=== PATIENT | male | born 1995 | race American Indian/Alaskan Native ===

== ENCOUNTER 2019-01-13 22:17 | Emergency (ER) | payer OTHER ==
[2019-01-13 23:37] LABS: Basophils % (Auto) 0.9 % (0.0-1.8); Eosinophils # (Auto) 0.5 K/mm3 (0.0-0.4); Eosinophils % (Auto) 9.5 % (0.0-4.3); Hematocrit 43.8 % (35.5-45.6); Hemoglobin 15.3 gm/dl (11.8-15.2); Lymphocytes # (Auto) 1.4 K/mm3 (1.2-5.4); Lymphocytes % (Auto) 28.1 % (13.4-35.0); Mean Corpuscular HGB Conc 35 % (32-34); Mean Corpuscular Hemoglobin 31 pg (28-32); Mean Corpuscular Volume 89 fl (84-94); Monocytes # (Auto) 0.4 K/mm3 (0.0-0.8); Monocytes % (Auto) 8.3 % (0.0-7.3); Red Blood Count 4.93 M/mm3 (3.65-5.03); Red Cell Distribution Width 14.5 % (13.2-15.2)
[2019-01-13 23:57] LABS: BUN/Creatinine Ratio 11; Blood Urea Nitrogen 13 mg/dL (9-20); Calcium 9.4 mg/dL (8.4-10.2); Hemolysis Index 8
[2019-01-14 00:11] LABS: Platelet Count 128 K/mm3 (140-440)
[2019-01-14] MEDS ORDERED: NITRO-BID 2% TP ONE (01:46)
--- NOTE | 2019-01-14 01:51 | Emergency Department Report ---
HPI - General Chief Complaint: Chest Pain Time Seen by Provider: 01/14/19 01:27 - [facility] HPI: Room 17 The patient is a 23-year-old male presenting with chief complaint chest pain. The patient states she's been on a crack cocaine binge for the past 5 days. The patient states for the past 3 weeks she's had left-sided chest pain associated with back numbness and shortness of breath. Patient denies nausea/vomiting or diaphoresis. The patient states he took someone else's carvedilol because he learned that it is a medication to lower blood pressure. Patient states his chest pain prompted him to come to the ED upon arrival to the ED he states his chest pain resolved. Patient currently denies chest pain Location: [See above] Duration: [See above] Quality: pain Severity: [See above] Modifying factors: [see above] Context: [see above] Mode of transportation: [not driving] ED Past Medical Hx - Past Medical History Hx Hypertension: Yes Hx Psychiatric Treatment: Yes (Depression) - Surgical History Past Surgical History?: No - Family History Family history: no significant - Social History Smoking Status: Current Every Day Smoker (1/7 per day) Substance Use Type: Alcohol (occasional), Cocaine ED Review of Systems ROS: Stated complaint: CHEST PAIN Other details as noted in HPI Constitutional: denies: diaphoresis Eyes: denies: eye pain ENT: denies: throat pain Respiratory: shortness of breath Cardiovascular: chest pain Endocrine: no symptoms reported Gastrointestinal: denies: nausea, vomiting Genitourinary: denies: dysuria Musculoskeletal: back pain Neurological: paresthesias. denies: headache Physical Exam - Physical Exam Vital Signs: Vital Signs 01/13/19 01/14/19 01/14/19 22:48 00:30 00:45 Temperature 98 F Pulse Rate 68 55 L Respiratory 20 20 Rate Blood Pressure 154/87 126/68 O2 Sat by Pulse 100 98 98 Oximetry 01/14/19 00:55 Temperature Pulse Rate Respiratory 18 Rate Blood Pressure O2 Sat by Pulse 97 Oximetry Physical Exam: GENERAL: The patient is well-developed well-nourished male lying on stretcher not appearing to be in acute distress. [] HEENT: Normocephalic. Atraumatic. Extraocular motions are intact. Patient has moist mucous membranes. NECK: Supple. Trachea midline CHEST/LUNGS: Clear to auscultation. There is no respiratory distress noted. HEART/CARDIOVASCULAR: Regular. There is no tachycardia. There is no gallop rub or murmur. ABDOMEN: Abdomen is soft, nontender. Patient has normal bowel sounds. There is no abdominal distention. SKIN: There is no rash. There is no edema. There is no diaphoresis. NEURO: The patient is awake, alert, and oriented. The patient is cooperative. The patient has normal speech MUSCULOSKELETAL: There is no evidence of acute injury. ED Course Vital Signs 01/13/19 01/14/19 01/14/19 22:48 00:30 00:45 Temperature 98 F Pulse Rate 68 55 L Respiratory 20 20 Rate Blood Pressure 154/87 126/68 O2 Sat by Pulse 100 98 98 Oximetry 01/14/19 00:55 Temperature Pulse Rate Respiratory 18 Rate Blood Pressure O2 Sat by Pulse 97 Oximetry ED Medical Decision Making - Lab Data Result diagrams: 01/13/19 23:01 01/13/19 23:01 Laboratory Tests 01/13/19 01/13/19 01/14/19 23:01 23:01 03:59 WBC 5.1 RBC 4.93 Hgb 15.3 H Hct 43.8 MCV 89 MCH 31 MCHC 35 H RDW 14.5 Plt Count 128 L Lymph % (Auto) 28.1 Cook % (Auto) 8.3 H Eos % (Auto) 9.5 H Baso % (Auto) 0.9 Lymph # 1.4 Cook # 0.4 Eos # 0.5 H Baso # 0.0 Seg Neutrophils % 53.2 Seg Neutrophils # 2.7 Sodium 139 Potassium 3.7 Chloride 101.9 Carbon Dioxide 25 Anion Gap 16 BUN 13 Creatinine 1.2 Estimated GFR > 60 BUN/Creatinine Ratio 11 Glucose 82 Calcium 9.4 Troponin T < 0.010 Urine Opiates Screen Presumptive negative Urine Methadone Screen Presumptive negative Ur Barbiturates Screen Presumptive negative Ur Phencyclidine Scrn Presumptive negative Ur Amphetamines Screen Presumptive negative U Benzodiazepines Scrn Presumptive negative Urine Cocaine Screen Presumptive positive U Marijuana (THC) Screen Presumptive positive Drugs of Abuse Note Disclamer 01/14/19 05:33 WBC RBC Hgb Hct MCV MCH MCHC RDW Plt Count Lymph % (Auto) Cook % (Auto) Eos % (Auto) Baso % (Auto) Lymph # Cook # Eos # Baso # Seg Neutrophils % Seg Neutrophils # Sodium Potassium Chloride Carbon Dioxide Anion Gap BUN Creatinine Estimated GFR BUN/Creatinine Ratio Glucose Calcium Troponin T < 0.010 Urine Opiates Screen Urine Methadone Screen Ur Barbiturates Screen Ur Phencyclidine Scrn Ur Amphetamines Screen U Benzodiazepines Scrn Urine Cocaine Screen U Marijuana (THC) Screen Drugs of Abuse Note - EKG Data -: EKG Interpreted by Me EKG shows normal: sinus rhythm Rate: normal - EKG Data When compared to previous EKG there are: previous EKG unavailable Interpretation: nonspecific ST-T wave luis (T-wave inversions in leads 2, 3, aVF. Slight ST depression in leads 23, aVF) - Radiology Data Radiology results: report reviewed (chest x-ray), image reviewed (chest x-ray) interpreted by me: Chest x-ray-no focal infiltrates, no pneumothorax Findings [facility] [address] [place] [address] XRay Report Signed Patient: LUDMILA NUNEZ MR#: [id number] : 07/1995 Acct:[id number] Age/Sex: 23 / M ADM Date: 01/13/19 Loc: ED Attending Dr: Ordering Physician: MINNA BEARD MD Date of Service: 01/14/19 Procedure(s): XR chest 1V ap Accession Number(s): [id number] cc: MINNA BEARD MD Fluoro Time In Minutes: FINAL REPORT PROCEDURE: XR CHEST 1V AP TECHNIQUE: Chest radiograph anteroposterior view. CPT 43725 HISTORY: chest pain COMPARISON: No prior studies are available for comparison. FINDINGS: Heart: Normal. Mediastinum/Vessels: Normal. Lungs/Pleural space: Normal. Bony thorax: No acute osseous abnormality. Life support devices: None. IMPRESSION: No acute cardiopulmonary abnormality. Transcribed By: CO Dictated By: JIMENEZ JACOBSEN MD Electronically Authenticated By: JIMENEZ JACOBSEN MD Signed Date/Time: 01/14/19304 DD/ 3 TD/TT: 01/14/19303 - Differential Diagnosis ACS, pericarditis, GERD Critical care attestation.: If time is entered above; I have spent that time in minutes in the direct care of this critically ill patient, excluding procedure time. ED Disposition Clinical Impression: Chest pain, Cocaine use Disposition: DC-09 OP ADMIT IP TO THIS HOSP Is pt being admited?: No Does the pt Need Aspirin: Yes Condition: Undetermined Instructions: Chest Pain (ED) Referrals: PRIMARY CARE,MD [Primary Care Provider] - 3-5 Days Time of Disposition: 06:14 (pt leaving AMA)
--- NOTE | 2019-01-14 03:05 | XRay Report ---
FINAL REPORT PROCEDURE: XR CHEST 1V AP TECHNIQUE: Chest radiograph anteroposterior view. CPT 78232 HISTORY: chest pain COMPARISON: No prior studies are available for comparison. FINDINGS: Heart: Normal. Mediastinum/Vessels: Normal. Lungs/Pleural space: Normal. Bony thorax: No acute osseous abnormality. Life support devices: None. IMPRESSION: No acute cardiopulmonary abnormality.
[2019-01-14 05:02] LABS: Amphetamine Screen,Urine PRESUMPTIVE NEGATIVE; Benzodiazepines Screen,Urine PRESUMPTIVE NEGATIVE; Methadone Screen,Urine PRESUMPTIVE NEGATIVE; Opiate Screen,Urine PRESUMPTIVE NEGATIVE
[2019-01-14 05:27] LABS: Cannabinoid Screen,Urine PRESUMPTIVE POSITIVE; Cocaine Screen,Urine PRESUMPTIVE POSITIVE
[2019-01-14 06:11] VITALS: BP 108/60
[2019-01-14] MEDS ORDERED: TYLENOL PO ONE (06:13)
== END 2019-01-14 06:15 | disposition admitted as inpatient to this hospital (09) ==
LOC: ED 22:17
DX: R07.89 Other chest pain (principal); R06.02 Shortness of breath; R20.0 Anesthesia of skin; F14.10 Cocaine abuse, uncomplicated; I10 Essential (primary) hypertension; F32.9 Major depressive disorder, single episode, unspecified; F17.200 Nicotine dependence, unspecified, uncomplicated; Z79.899 Other long term (current) drug therapy
CPT/HCPCS: 36415; 71045; 80048; 80307; 84484; 85025; 93005; 93010

== ENCOUNTER 2019-02-06 23:16 | Emergency (ER) | payer OTHER ==
[2019-02-06 23:35] VITALS: BP 138/80
[2019-02-07 00:04] LABS: Basophils % (Auto) 0.9 % (0.0-1.8); Hematocrit 42.9 % (35.5-45.6); Hemoglobin 14.4 gm/dl (11.8-15.2); Lymphocytes # (Auto) 1.2 K/mm3 (1.2-5.4); Lymphocytes % (Auto) 29.6 % (13.4-35.0); Mean Corpuscular HGB Conc 34 % (32-34); Mean Corpuscular Volume 90 fl (84-94); Monocytes # (Auto) 0.4 K/mm3 (0.0-0.8); Red Blood Count 4.79 M/mm3 (3.65-5.03); Red Cell Distribution Width 14.7 % (13.2-15.2)
[2019-02-07 00:07] LABS: Platelet Count 97 K/mm3 (140-440)
[2019-02-07 00:51] LABS: BUN/Creatinine Ratio 14; Blood Urea Nitrogen 14 mg/dL (9-20); Calcium 9.4 mg/dL (8.4-10.2); Hemolysis Index 25
--- NOTE | 2019-02-07 01:43 | Emergency Department Report ---
ED General Adult HPI - General Chief complaint: Chest Pain Stated complaint: DON'T FEEL RIGHT Time Seen by Provider: 02/07/19 01:41 Source: patient Mode of arrival: Ambulatory Limitations: No Limitations - History of Present Illness Initial comments: 23 y.o. male with history of cocaine abuse presents with complaint of chest pain. Patient has been using cocaine for the past 8 days. Patient denies SI or HI. Severity scale (0 -10): 9 - Related Data Allergies Allergy/AdvReac Type Severity Reaction Status Date / Time No Known Allergies Allergy Unverified 01/13/19 22:22 ED Review of Systems ROS: Stated complaint: DON'T FEEL RIGHT Other details as noted in HPI Constitutional: denies: chills, fever Eyes: denies: eye pain, eye discharge, vision change ENT: denies: ear pain, throat pain Respiratory: denies: cough, shortness of breath, wheezing Cardiovascular: chest pain Endocrine: no symptoms reported Gastrointestinal: denies: abdominal pain, nausea, diarrhea Genitourinary: denies: urgency, dysuria Musculoskeletal: denies: back pain, joint swelling, arthralgia Skin: denies: rash, lesions Neurological: denies: headache, weakness, paresthesias Psychiatric: denies: anxiety, depression Hematological/Lymphatic: denies: easy bleeding, easy bruising ED Past Medical Hx - Past Medical History Hx Hypertension: Yes Hx Psychiatric Treatment: Yes (Depression) - Social History Smoking Status: Current Every Day Smoker Substance Use Type: Alcohol, Marijuana ED Physical Exam - General Limitations: No Limitations General appearance: alert, in no apparent distress - Head Head exam: Present: atraumatic, normocephalic - Eye Eye exam: Present: normal appearance - ENT ENT exam: Present: mucous membranes moist - Neck Neck exam: Present: normal inspection - Respiratory Respiratory exam: Present: normal lung sounds bilaterally. Absent: respiratory distress - Cardiovascular Cardiovascular Exam: Present: regular rate, normal rhythm. Absent: systolic murmur, diastolic murmur, rubs, gallop - GI/Abdominal GI/Abdominal exam: Present: soft, normal bowel sounds - Rectal Rectal exam: Present: deferred - Extremities Exam Extremities exam: Present: normal inspection - Back Exam Back exam: Present: normal inspection - Neurological Exam Neurological exam: Present: alert, oriented X3 - Psychiatric Psychiatric exam: Present: normal affect, normal mood - Skin Skin exam: Present: warm, dry, intact, normal color. Absent: rash ED Course Vital Signs 02/06/19 23:34 Temperature 98.9 F Pulse Rate 80 Respiratory 16 Rate Blood Pressure 138/80 O2 Sat by Pulse 96 Oximetry ED Medical Decision Making - Lab Data Result diagrams: 02/06/19 23:48 02/06/19 23:48 - EKG Data -: EKG Interpreted by Me EKG shows normal: sinus rhythm Rate: normal - EKG Data When compared to previous EKG there are: no significant change Interpretation: no acute changes - Differential Diagnosis STEMI; NSTEMI; Electrolyte abnormality; Anemia: pneumonia Critical care attestation.: If time is entered above; I have spent that time in minutes in the direct care of this critically ill patient, excluding procedure time. ED Disposition Condition: Stable Referrals: [facility] [Other] - 3-5 Days
== END 2019-02-07 02:00 | disposition left against medical advice (07) ==
LOC: ED 23:16
DX: F14.10 Cocaine abuse, uncomplicated (principal); Z79.899 Other long term (current) drug therapy; Z53.21 Procedure and treatment not carried out due to patient leaving prior to being seen by health care provider
CPT/HCPCS: 36415; 80048; 84484; 85025; 93005; 93010; G0480; 80320

== ENCOUNTER 2021-08-17 18:30 | Emergency (ER) | payer OTHER | END 2021-08-18 04:20 | LOC: ED 18:30 | DX: R53.83 Other fatigue (principal); F41.9 Anxiety disorder, unspecified; Z53.21 Procedure and treatment not carried out due to patient leaving prior to being seen by health care provider ==